=== PATIENT | male | born 1960 | race Caucasian/White ===

== ENCOUNTER 2016-08-24 12:33 | Inpatient (IN) | payer OTHER ==
[~2016-08-24] VITALS: Ht 193 cm; Wt 108.6 kg
[~2016-08-24 12:33] MED LIST: ADVAIR 250/501 EA INH; ADVAIR DISKUS 51 DSK IH; AMBIEN5 MG PO; AMOXICILLIN250 MG PO; ASPIRIN81 M1 PO; AUGMENTIN 875875 MG PO; DOXYCYCLINE100 M3 PO; HYDR12.5C PO; KEFLEX500 MG PO; LEVOFLOXACIN500 MG PO; LISINOPRIL10 MG PO; LOPRESSOR25 MG PO; LOVENOX30 MG/0.3 SC; METFORMIN500 MG PO; METOPROLOL SR25 MG PO; MIRALAX17 GM/PACK PO; MULTI VITAMINS1 TAB PO; NEXIUM20 MG PO; NORVASC5 MG PO; PERCOCET 325 MG1 TA7 PO; PRILOSEC40 MG PO; PROAIR HFA0.09 MG/AC IH; PROTONIX40 MG PO; TENORMIN25 MG PO; VICO75300 PO; XANAX0.25 MG PO; XARELTO10 PO
[2016-08-24 13:11] VITALS: BP 173/100
[2016-08-24 13:40] LABS: BASO % 0.4 % (0.0-1.0); EOS # 0.1 10*3/uL (0.0-0.4); EOS % 0.8 % (1.0-4.0); HEMATOCRIT 38.4 % (42.0-52.0); HEMOGLOBIN 12.4 g/dl (14.0-18.0); LYMPH # 2.1 10*3/uL (1.3-4.4); LYMPH % 23.3 % (27.0-41.0); MEAN CELL VOLUME 72.2 fl (80.0-94.0); MEAN CORPUSCULAR HGB 23.3 pg (27.0-31.0); MEAN CORPUSCULAR HGB CONC 32.3 g/dl (33.0-37.0); MEAN PLATELET VOLUME 11.4 fl (9.6-12.3); MONO # 0.7 10*3/uL (0.1-1.0); MONO % 7.5 % (3.0-9.0); NEUT # 6.1 10*3/uL (2.3-7.9); NEUT % 67.7 % (47.0-73.0); PLATELET COUNT AUTOMATED 268 10*3/uL (130-400); RED BLOOD COUNT 5.32 10*6/uL (4.50-5.90); RED CELL DISTRI WIDTH 15.2 % (0-14.5)
[2016-08-24 13:48] LABS: INTERNATIONAL NORM RATIO 0.9 (2.0-3.5)
[2016-08-24 14:00] LABS: ALBUMIN 3.6 gm/dl (3.1-4.5); ALKALINE PHOSPHATASE 62 U/L (45-117); BILIRUBIN, TOTAL 0.3 mg/dl (0.2-1.0); BUN 10 mg/dl (7-24); C-REACTIVE PROTEIN < 0.29 MG/DL (0-0.3); CARBON DIOXIDE 25 mmol/L (21-32); CHLORIDE 107 mmol/L (98-107); CKMB 1.9 ng/ml (0.5-3.6); CPK 152 U/L (39-308); EST GLOM FILT AFRICAN AMERICAN > 60 ml/min; GLUCOSE 133 mg/dL (65-99); MAGNESIUM 1.7 mg/dL (1.5-2.1); POTASSIUM 4.4 mmol/L (3.5-5.1); SGOT/AST 15 IU/L (3-35); SGPT/ALT 31 U/L (12-78); SODIUM 141 mmol/L (136-145); TOTAL PROTEIN 6.9 gm/dL (6.4-8.2); TROPONIN I < 0.015 ng/ml (<0.045)
[2016-08-24 15:24] VITALS: BP 170/100
[2016-08-24] MEDS ORDERED: CLONIDINE0.2 MG PO (15:32)
[2016-08-24] MEDS ORDERED: GLYBURIDE5 MG PO (15:33)
[2016-08-24] MEDS ORDERED: ZOCOR20 MG PO (15:34)
[2016-08-24 16:30] VITALS: BP 179/98
[2016-08-24] MEDS ORDERED: JANUVIA100 MG PO (17:00)
[2016-08-24 17:01] VITALS: BP 179/98
[2016-08-24] MEDS ORDERED: AMBIEN5 MG PO (17:01)
[2016-08-24] MEDS ORDERED: BREO ELLIPTA 11 EACH IH (17:02)
[2016-08-24 18:51] LABS: CKMB 1.3 ng/ml (0.5-3.6); CPK 146 U/L (39-308)
[2016-08-24 18:52] LABS: TROPONIN I < 0.015 ng/ml (<0.045)
[2016-08-24 20:00] VITALS: BP 200/110
[2016-08-24 22:58] VITALS: BP 198/100
[2016-08-25] VITALS (7 sets, daily range): BP systolic 146–180; BP diastolic 78–100
[2016-08-25 00:54] LABS: CKMB 1.3 ng/ml (0.5-3.6); CPK 130 U/L (39-308); TROPONIN I < 0.015 ng/ml (<0.045)
[2016-08-25 06:15] LABS: BASO % 0.5 % (0.0-1.0); EOS # 0.2 10*3/uL (0.0-0.4); EOS % 2.1 % (1.0-4.0); HEMATOCRIT 40.9 % (42.0-52.0); HEMOGLOBIN 13.2 g/dl (14.0-18.0); LYMPH # 2.7 10*3/uL (1.3-4.4); LYMPH % 35.3 % (27.0-41.0); MEAN CELL VOLUME 72.1 fl (80.0-94.0); MEAN CORPUSCULAR HGB 23.3 pg (27.0-31.0); MEAN CORPUSCULAR HGB CONC 32.3 g/dl (33.0-37.0); MEAN PLATELET VOLUME 11.5 fl (9.6-12.3); MONO # 0.6 10*3/uL (0.1-1.0); MONO % 7.7 % (3.0-9.0); NEUT # 4.1 10*3/uL (2.3-7.9); NEUT % 54.1 % (47.0-73.0); PLATELET COUNT AUTOMATED 269 10*3/uL (130-400); RED BLOOD COUNT 5.67 10*6/uL (4.50-5.90); RED CELL DISTRI WIDTH 15.1 % (0-14.5); WHITE BLOOD COUNT 7.5 10*3/uL (4.8-10.8)
[2016-08-25 06:33] LABS: CKMB 1.2 ng/ml (0.5-3.6); CPK 119 U/L (39-308)
[2016-08-25 06:35] LABS: HEMOGLOBIN A1c 7.8 % (4.8-5.6)
[2016-08-25 06:47] LABS: TROPONIN I < 0.015 ng/ml (<0.045)
[2016-08-25 06:57] LABS: ALBUMIN 3.6 gm/dl (3.1-4.5); BILIRUBIN, TOTAL 0.5 mg/dl (0.2-1.0); BUN 9 mg/dl (7-24); CARBON DIOXIDE 27 mmol/L (21-32); CHLORIDE 106 mmol/L (98-107); CHOLESTEROL 153 mg/dL (<200); EST GLOM FILT AFRICAN AMERICAN > 60 ml/min; GLUCOSE 146 mg/dL (65-99); MAGNESIUM 1.7 mg/dL (1.5-2.1); PHOSPHOROUS 3.5 mg/dL (2.5-4.9); SGOT/AST 16 IU/L (3-35); SGPT/ALT 35 U/L (12-78); SODIUM 142 mmol/L (136-145); TOTAL PROTEIN 7.1 gm/dL (6.4-8.2); TRIGLYCERIDES 213 mg/dl (<150); VLDL CHOLESTEROL 43 mg/dL (6-40)
[2016-08-25 07:03] LABS: ALKALINE PHOSPHATASE 64 U/L (45-117); HDL CHOLESTEROL 47 mg/dl (40-60); LDL CHOLESTEROL 63 mg/dL (9-159)
[2016-08-25 07:04] LABS: PROTHROMBIN TIME 10.2 SECONDS (9.0-12.4)
[2016-08-25 07:15] LABS: VITAMIN D, 25-HYDROXY 32.5 ng/mL (30-100)
[2016-08-25 07:56] LABS: FOLIC ACID 16.09 ng/mL (>5.38)
[2016-08-25] MEDS ORDERED: HYDR25T PO (15:11)
== END 2016-08-25 15:31 | disposition home or self-care (01) | DRG 305 ==
LOC: ED 12:33 → EDHOLD 15:07 → 5E 15:07
PROVIDERS: Emergency Medicine; Internal Medicine
DX: I16.1 Hypertensive emergency (principal); E11.65 Type 2 diabetes mellitus with hyperglycemia; E44.1 Mild protein-calorie malnutrition; M79.605 Pain in left leg; I10 Essential (primary) hypertension; E78.5 Hyperlipidemia, unspecified; D50.9 Iron deficiency anemia, unspecified; J45.909 Unspecified asthma, uncomplicated; Z86.718 Personal history of other venous thrombosis and embolism; Z82.49 Family history of ischemic heart disease and other diseases of the circulatory system; Z80.1 Family history of malignant neoplasm of trachea, bronchus and lung; Z88.1 Allergy status to other antibiotic agents; Z88.6 Allergy status to analgesic agent; Z91.018 Allergy to other foods; Z79.84 Long term (current) use of oral hypoglycemic drugs; Z79.899 Other long term (current) drug therapy; Z79.82 Long term (current) use of aspirin; Z79.1 Long term (current) use of non-steroidal anti-inflammatories (NSAID); Z79.51 Long term (current) use of inhaled steroids; Z68.30 Body mass index [BMI] 30.0-30.9, adult

== ENCOUNTER → 2020-07-29 | Outpatient (CLI) | payer OTHER ==
[~2020-07-29] MED LIST changes: +BREO ELLIPTA 11 EACH IH; +CLONIDINE0.2 MG PO; +GLYBURIDE5 MG PO; +HYDR25T PO; +JANUVIA100 MG PO; +ZOCOR20 MG PO
== END | disposition home or self-care (01) ==
LOC: COVID19 13:45
PROVIDERS: ATTEND Physician Assistant
DX: U07.1 COVID-19 (principal); R69 Illness, unspecified

== ENCOUNTER → 2021-03-27 | Outpatient (CLI) | payer OTHER | END | disposition home or self-care (01) | LOC: US 14:22 | PROVIDERS: ATTEND Physical Medicine & Rehabilitation | DX: M79.661 Pain in right lower leg (principal); Z86.718 Personal history of other venous thrombosis and embolism ==

== ENCOUNTER 2022-11-04 14:55 | Emergency (ER) | payer OTHER ==
[~2022-11-04] VITALS: Wt 106.6 kg
[2022-11-04 15:25] VITALS: BP 151/92
[2022-11-04] MEDS ORDERED: AMOX-CLAV 875-1 EACH PO (16:00)
== END 2022-11-04 16:05 | disposition home or self-care (01) ==
LOC: ED 14:55
DX: S61.212A Laceration without foreign body of right middle finger without damage to nail, initial encounter (principal); J45.909 Unspecified asthma, uncomplicated; I10 Essential (primary) hypertension; E11.9 Type 2 diabetes mellitus without complications; K21.9 Gastro-esophageal reflux disease without esophagitis; Z86.718 Personal history of other venous thrombosis and embolism; Z95.5 Presence of coronary angioplasty implant and graft; Z88.8 Allergy status to other drugs, medicaments and biological substances; Z91.011 Allergy to milk products; Z88.1 Allergy status to other antibiotic agents; Z88.5 Allergy status to narcotic agent; Z98.890 Other specified postprocedural states; Z90.89 Acquired absence of other organs; W55.01XA Bitten by cat, initial encounter; Y93.89 Activity, other specified; Y92.89 Other specified places as the place of occurrence of the external cause; Y99.8 Other external cause status